=== PATIENT | male | born 1970 | race Caucasian/White ===

== ENCOUNTER 2017-03-03 12:25 | Inpatient (IN) | payer OTHER ==
[~2017-03-03] VITALS: Ht 180.3 cm; Wt 98.1 kg
[2017-03-03 12:59] LABS: MANUAL MICROSCOPIC REQUIRED? NO; REVIEW REQ? NO; URINE APPEARANCE CLEAR (CLEAR); URINE BILIRUBIN NEG (NEG); URINE COLOR YELLOW; URINE NITRITE NEG (NEG); URINE SPECIFIC GRAVITY 1.019 (1.000-1.030); UROBILINOGEN NEG (NEG); ZZUR CULT IF INDIC CLEAN CATCH NO
[2017-03-03 13:31] LABS: BENZODIAZEPINE, URINE NEG (NEG); COCAINE,URINE NEG (NEG); PHENCYCLIDINE, URINE NEG (NEG)
[2017-03-03 13:55] LABS: BASO % 0.2 %; BASO ABS # 0.02 K/uL (0-0.2); COMPLETE YES; EOS % 4.8 %; HEMATOCRIT 44.3 % (42-52); IG% 0.2 %; LYMPH % 23.2 %; LYMPH ABS # 2.13 K/uL (1.2-3.4); MEAN CELL VOLUME 88.1 fL (80-100); MEAN CORPUSCULAR HEMOGLOBIN 31.4 pg (25-34); MEAN CORPUSCULAR HGB CONC 35.7 g/dl (32-36); MEAN PLATELET VOLUME 10.3 fL (7.4-10.4); NEUT % 61.6 %; PLATELET COUNT 257 K/uL (130-400); RED BLOOD COUNT 5.03 M/uL (4.7-6.1); WHITE BLOOD COUNT 9.17 K/uL (4.8-10.8)
[2017-03-03] MEDS ORDERED: BUPRTAB PO (14:10)
[2017-03-03] MEDS ORDERED: MELO15TA4 PO (14:10)
[2017-03-03] MEDS ORDERED: PRLSR20 PO (14:10)
[2017-03-03 14:32] LABS: ALB/GLOB RATIO 1.1 (0.9-2); CALCIUM 8.9 mg/dl (8.5-10.1); CREATININE 1.27 mg/dl (0.60-1.40); THYROID STIMULATING HORMONE 2.66 uIu/ml (0.300-4.500)
[2017-03-03 14:34] LABS: POTASSIUM 4.6 mmol/L (3.5-5.1)
[2017-03-03 14:36] LABS: ACETAMINOPHEN < 2 ug/ml (10-30)
[2017-03-03] MEDS ORDERED: BISMUTH SUBSALICYLATE PER ML OMNICELL CHARGE PO PRN (16:15)
[2017-03-03] MEDS ORDERED: ACETAMINOPHEN 325 MG TAB PO PRN (16:15)
[2017-03-03] MEDS ORDERED: MAGNESIUM HYDROXIDE SUSP 30 ML UDC PO PRN (16:15)
[2017-03-03] MEDS ORDERED: ALUMINUM/MAGNESIUM SUSP 30 ML UDC PO PRN (16:15)
[2017-03-03] MEDS ORDERED: hydrOXYzine HCL 25 MG TAB PO PRN ×2 (16:15)
[2017-03-03] MEDS ORDERED: SODIUM CHLORIDE 0.65% NA SOLN 45 ML (OCEAN) PRN (16:15)
--- NOTE | 2017-03-03 17:03 | EMERGENCY ROOM VISIT NOTE ---
History Report prepared by Branden: Rey Bourgeois Under the Supervision of: Dr. Solo Valenzuela M.D. First contact with patient: 13:11 Chief Complaint: MENTAL HEALTH EVALUATION Stated Complaint: MR History of Present Illness The patient is a 46 year old male who presents to the Emergency Room with complaints of worsening anger beginning this week. He is worried that he has been losing his temper easily and has had difficulty controlling himself. He states that he has a lot of anger towards certain people and is afraid he could hurt them. The patient states that a lot of his anger is aimed at his step- mother. He states that he has always had problems with his step-mother, but it has worsened since his father . He has no specific plan to harm his step- mother. The patient was seen by a counselor earlier this week and referred to the ED. He denies suicidal ideation. He is a and has a history of PTSD. The patient has never acted on his anger towards his step-mother. He denies cough, fevers, or chills. He has a family history of depression. The patient states that he has not been sleeping well recently. He has been eating and drinking normally. He denies recent weight fluctuation. 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 Per , the patient had an episode of anxiety yesterday. She states that his heart was racing and he was very panicked. Source of History: patient Onset: This week Quality: other (anger) Timing: worsening Associated Symptoms: No fevers, No chills, No cough Review of Systems See HPI for pertinent positives & negatives. A total of 10 systems reviewed and were otherwise negative. Past Medical & Surgical Medical Problems: (1) PTSD (post-traumatic stress disorder) Family History No pertinent family history stated. Social History Smoking Status: Current Every Day Smoker Marital Status: Occupation Status: employed Current/Historical Medications Scheduled Bupropion (Wellbutrin Sr), 150 MG PO BID17 Meloxicam (Meloxicam), 15 MG PO DAILY Omeprazole (Prilosec), 40 MG PO BID Allergies Coded Allergies: No Known Allergies (Unverified , 03/03/17) Physical Exam Vital Signs Date Time Temp Pulse Resp B/P (MAP) Pulse Ox O2 Delivery O2 Flow Rate FiO2 03/03/17 17:15 73 18 151/74 98 Room Air 03/03/17 15:30 81 18 157/98 97 Room Air 03/03/17 12:29 36.8 90 20 157/91 94 Room Air Physical Exam GENERAL: Patient is in no acute distress. HEENT: No acute trauma, normocephalic atraumatic, mucous membranes moist, no nasal congestion, no scleral icterus. NECK: No stridor, no adenopathy, no meningismus, trachea is midline. LUNGS: Clear to auscultation bilaterally, no wheeze, no rhonchi, breath sounds equal. HEART: Without murmurs gallops or rubs, regular rate and rhythm. ABDOMEN: Soft, nontender, bowel sounds positive, no hernias, no peritonitis. EXTREMITIES: No cyanosis or edema, full range of motion of all the joints without pain or difficulty, no signs for acute trauma. NEUROLOGIC: Oriented x 3, no acute motor or sensory deficits, no focal weakness. SKIN: No rash, no jaundice, no diaphoresis. PSYCH: Flat affect. Admits to some homicidal ideation. No suicidality. Medical Decision & Procedures Laboratory Results 03/03/17 13:33 Red Blood Count 5.03, Mean Corpuscular Volume 88.1, Mean Corpuscular Hemoglobin 31.4, Mean Corpuscular Hemoglobin Concent 35.7, Mean Platelet Volume 10.3, Neutrophils (%) (Auto) 61.6, Lymphocytes (%) (Auto) 23.2, Monocytes (%) (Auto) 10.0, Eosinophils (%) (Auto) 4.8, Basophils (%) (Auto) 0.2, Neutrophils # (Auto ) 5.64, Lymphocytes # (Auto) 2.13, Monocytes # (Auto) 0.92, Eosinophils # (Auto ) 0.44, Basophils # (Auto) 0.02 03/03/17 13:33 Test 03/03/17 12:45 03/03/17 13:33 Urine Color YELLOW Urine Appearance CLEAR (CLEAR) Urine pH 7.0 (4.5-7.5) Urine Specific [place] 1.019 (1.000-1.030) Urine Protein NEG (NEG) Urine Glucose (UA) NEG (NEG) Urine Ketones NEG (NEG) Urine Occult Blood NEG (NEG) Urine Nitrite NEG (NEG) Urine Bilirubin NEG (NEG) Urine Urobilinogen NEG (NEG) Urine Leukocyte Esterase TRACE (NEG) Urine WBC (Auto) 1-5 /hpf (0-5) Urine RBC (Auto) 0-4 /hpf (0-4) Urine Hyaline Casts (Auto) 1-5 /lpf (0-5) Urine Epithelial Cells (Auto) 5-10 /lpf (0-5) Urine Bacteria (Auto) NEG (NEG) Urine Opiates Screen NEG (NEG) Urine Methadone, Qualitative NEG (NEG) Urine Barbiturates NEG (NEG) Urine Phencyclidine (PCP) Level NEG (NEG) Ur Amphetamine/Methamphetamine NEG (NEG) MDMA (Ecstasy) Screen POS (NEG) Urine Benzodiazepines Screen NEG (NEG) Urine Cocaine Metabolite NEG (NEG) Urine Marijuana (THC) NEG (NEG) White Blood Count 9.17 K/uL (4.8-10.8) Red Blood Count 5.03 M/uL (4.7-6.1) Hemoglobin 15.8 g/dL (14.0-18.0) Hematocrit 44.3 % (42-52) Mean Corpuscular Volume 88.1 fL (80-100) Mean Corpuscular Hemoglobin 31.4 pg (25-34) Mean Corpuscular Hemoglobin Concent 35.7 g/dl (32-36) Platelet Count 257 K/uL (130-400) Mean Platelet Volume 10.3 fL (7.4-10.4) Neutrophils (%) (Auto) 61.6 % Lymphocytes (%) (Auto) 23.2 % Monocytes (%) (Auto) 10.0 % Eosinophils (%) (Auto) 4.8 % Basophils (%) (Auto) 0.2 % Neutrophils # (Auto) 5.64 K/uL (1.4-6.5) Lymphocytes # (Auto) 2.13 K/uL (1.2-3.4) Monocytes # (Auto) 0.92 K/uL (0.11-0.59) Eosinophils # (Auto) 0.44 K/uL (0-0.5) Basophils # (Auto) 0.02 K/uL (0-0.2) RDW Standard Deviation 40.4 fL (36.4-46.3) RDW Coefficient of Variation 12.6 % (11.5-14.5) Immature Granulocyte % (Auto) 0.2 % Immature Granulocyte # (Auto) 0.02 K/uL (0.00-0.02) Anion Gap 10.0 mmol/L (3-11) Est Creatinine Clear Calc Drug Dose 88.5 ml/min Estimated GFR () 78.6 Estimated GFR (Non- 67.8 BUN/Creatinine Ratio 10.0 (10-20) Calcium Level 8.9 mg/dl (8.5-10.1) Total Bilirubin 0.6 mg/dl (0.2-1) Aspartate Amino Transf (AST/SGOT) 21 U/L (15-37) Alanine Aminotransferase (ALT/SGPT) 32 U/L (12-78) Alkaline Phosphatase 79 U/L (45-117) Total Protein 7.5 gm/dl (6.4-8.2) Albumin 3.9 gm/dl (3.4-5.0) Globulin 3.6 gm/dl (2.5-4.0) Albumin/Globulin Ratio 1.1 (0.9-2) Thyroid Stimulating Hormone (TSH) 2.660 uIu/ml (0.300-4.500) Salicylates Level 2.0 mg/dl (2.8-20) Acetaminophen Level < 2 ug/ml (10-30) Ethyl Alcohol mg/dL < 3.0 mg/dl (0-3) Laboratory results reviewed by me. Medications Administered Medications (Trade) Dose Ordered Sig/William Route Start Time Stop Time Status Last Admin Dose Admin Bupropion HCl (Wellbutrin-Sr Tab) 150 mg BID17 PO 03/03/17 17:00 04/02/17 16:59 03/03/17 18:28 150 MG ED Course 1314: The patient was evaluated in room A5. A complete history and physical exam was performed. 1710: Upon reexamination the patient is resting. I discussed results and treatment plan with the patient. He verbalizes agreement and understanding. The patient was accepted by [address] [place] [address]. Medical Decision The patient is a 46 year old male who presents to the ED with complaints of worsening anger. Differential diagnoses considered include homicidal ideation, suicidal ideation, thyroid disorder, PTSD, electrolyte imbalance, infection, and alcohol abuse. There is no leukocytosis or worrisome anemia. No significant electrolyte abnormality, kidney failure or hepatitis. The patient appears to be in a euthyroid state. Urinalysis does not show infection. Urine tox shows ecstasy, this could be from his Wellbutrin use though. Alcohol, Tylenol and aspirin levels were undetectable. The patient presents with worsening anger and frustration. He has had some homicidal ideation. He has been suffering from depression and anxiety. He does not feel he can function at home. The patient was felt medically clear. He was seen by psychiatry and has been accepted to this hospital's psychiatric floor. He will be brought into the psychiatric services voluntarily. Medication Reconcilliation Current Medication List: was personally reviewed by me Blood Pressure Screening Patient's blood pressure: Elevated blood pressure Blood pressure disposition: Elevated BP felt to be situational Impression Primary Impression: Homicidal ideation Scribe Attestation The scribe's documentation has been prepared under my direction and personally reviewed by me in its entirety. I confirm that the note above accurately reflects all work, treatment, procedures, and medical decision making performed by me. Departure Information Dispostion [facility] Acute Care (-[facility]) Referrals No Doctor, Assigned (PCP) Patient Instructions [facility]
[2017-03-03 17:15] VITALS: O2SAT 98
[2017-03-03] MEDS ORDERED: NURSING VERBAL MED ORDER ONE ×2 (17:45→18:00)
[2017-03-03] MEDS ORDERED: BUPR-79 PO (17:46)
[2017-03-03] MEDS: BuPROPion SR 150 MG TABCR PO SCH (18:28)
[2017-03-03 19:46] VITALS: BP 139/89; PULSE 81; TEMP 36.7; Ht 180.3 cm; Wt 98.1 kg
[2017-03-03] MEDS: PANTOprazole SOD 40 MG TAB PO SCH (21:33)
[2017-03-04 06:52] VITALS: BP_SYST 121; BP_SYST 131; BP_DIAS 71; BP_DIAS 76; PULSE 65; PULSE 88; TEMP 36.7
[2017-03-04] MEDS: PANTOprazole SOD 40 MG TAB PO SCH ×2 (07:45→22:59)
[2017-03-04] MEDS: BuPROPion SR 150 MG TABCR PO SCH ×2 (07:45→17:27)
[2017-03-04] MEDS: MELOXICAM 7.5 MG TAB PO SCH (07:45)
[2017-03-04] MEDS ORDERED: ESCITALOPRAM OXALATE 10 MG TAB PO ONE (10:30)
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
[2017-03-04] MEDS ORDERED: NICOTINE POLACRILEX 2 MG GUM MT PRN (10:45)
[2017-03-04] MEDS ORDERED: NICOTINE 21 MG/24 HR TDSY TD ONE (11:00)
[2017-03-04] MEDS: PRAZOSIN HCL 1 MG CAP PO SCH (22:59)
[2017-03-05 06:42] VITALS: BP_SYST 121; BP_DIAS 75; BP_DIAS 80; PULSE 65; PULSE 99; TEMP 36.6
[2017-03-05] MEDS: ESCITALOPRAM OXALATE 10 MG TAB PO SCH (08:33)
[2017-03-05] MEDS: BuPROPion SR 150 MG TABCR PO SCH ×2 (08:33→17:27)
[2017-03-05] MEDS: MELOXICAM 7.5 MG TAB PO SCH (08:33)
[2017-03-05] MEDS: PANTOprazole SOD 40 MG TAB PO SCH ×2 (08:33→22:20)
[2017-03-05] MEDS ORDERED: NICOTINE 21 MG/24 HR TDSY TD SCH (09:00)
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
[2017-03-05] MEDS: PRAZOSIN HCL 1 MG CAP PO SCH (22:20)
[2017-03-06 07:00] VITALS: BP_SYST 122; BP_SYST 124; BP_DIAS 71; BP_DIAS 78; PULSE 82; PULSE 98; TEMP 36.6
[2017-03-06] MEDS: MELOXICAM 7.5 MG TAB PO SCH (08:15)
[2017-03-06] MEDS: BuPROPion SR 150 MG TABCR PO SCH ×2 (08:15→17:26)
[2017-03-06] MEDS: ESCITALOPRAM OXALATE 10 MG TAB PO SCH (08:15)
[2017-03-06] MEDS: PANTOprazole SOD 40 MG TAB PO SCH ×2 (08:15→21:58)
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
[2017-03-06] MEDS: TOCOPHERYL, DL-ALPHA 400 INTER.UNIT CAP PO SCH (14:42)
[2017-03-06] MEDS: CHOLECALCIFEROL 1000 INTER.UNIT TAB PO SCH (14:43)
[2017-03-06] MEDS: PRAZOSIN HCL 1 MG CAP PO SCH (21:59)
[2017-03-07 06:36] VITALS: BP_SYST 115; BP_SYST 120; BP_DIAS 73; BP_DIAS 78; PULSE 73; PULSE 98; TEMP 36.5
[2017-03-07] MEDS: ESCITALOPRAM OXALATE 10 MG TAB PO SCH (08:50)
[2017-03-07] MEDS: PANTOprazole SOD 40 MG TAB PO SCH ×2 (08:50→21:59)
[2017-03-07] MEDS: TOCOPHERYL, DL-ALPHA 400 INTER.UNIT CAP PO SCH ×2 (08:50→21:59)
[2017-03-07] MEDS: CHOLECALCIFEROL 1000 INTER.UNIT TAB PO SCH (08:50)
[2017-03-07] MEDS: MELOXICAM 7.5 MG TAB PO SCH (08:50)
[2017-03-07] MEDS: BuPROPion SR 150 MG TABCR PO SCH ×2 (08:50→17:29)
[2017-03-07] MEDS ORDERED: VITA400C3 PO (08:55)
[2017-03-07] MEDS ORDERED: CHOL100040 PO (08:55)
--- NOTE | 2017-03-07 10:20 | Psych Management Progress Note ---
Psychiatry Miscellaneous Date of Service: Mar 07, 2017. Patient seen, MS assessed. Rates mood as 5/10. Encouraged cooperation with care and treatment plan as outlined by DIETITIAN TEACHER. Patient notes some fatigue today.
--- NOTE | 2017-03-07 11:52 | Psychiatric Progress Notes ---
Progress Note Date of Service Mar 07, 2017. Interval History 46-year-old gentleman admitted voluntarily with depression, rage, and inability to function. He has had a number of chronic and acute stressors culminating in his inability to function and episodes of rage. is concerned about his impulse control, fearing he would act on his violent thoughts. He has been on Wellbutrin from his PCP which has been effective. He was started on Lexapro to continue to address mood and irritability and prazosin for nightmares disrupting sleep. Chief Complaint "It didn't go the way I thought (family meeting).". Subjective Patient was seen & assessed interval progress reviewed with Treatment Team. The patient had a meeting with his yesterday. He thought they were going to talk about his meds and treatment, but talked about her frustrations, their relationship and the fact that she is not sure she will remain in the marriage. This was difficult for him to hear, "but I needed it.". He says that she wants him to put her first, as she feels he puts her last and doesn't include her in decision making. Although he didn't talk about it today, notes from the meeting indicate that he has had sexual contact with his ex during their marriage, and tried a second time. He admits that he felt angry during the meeting, like he wanted to punch something, but the more he talked the lower the anger got. he has had 2 conversations by phone with her since then and she wants to continue to talk about it, but he was able to tell her that he feels like she is nagging him about it and she was able to tolerate that feedback. He says that he is really trying to work in groups, talk when he normally wouldn't, and practice different ways to communicate. Nursing reports that he has been a good group participant. He is willing for ongoing couples therapy which he will initiate. He denies SI/HI. Review of Systems Constitutional: No fever, No chills, No sweats, No weight loss, No weakness, No fatigue, No problem reported ENT: No hearing loss, No unusual epistaxis, No nasal symptoms, No sore throat, No tinnitus, No dental problems, No trouble swallowing, No problem reported Respiratory: No cough, No sputum, No wheezing, No shortness of breath, No dyspnea on exertion, No dyspnea at rest, No hemoptysis, No problem reported Cardiovascular: No chest pain, No orthopnea, No PND, No edema, No claudication , No palpitations, No problem reported Abdomen: No pain, No nausea, No vomiting, No diarrhea, No constipation, No GI bleeding, No problem reported Musculoskeletal: No joint pain, No muscle pain, No swelling, No calf pain, No problem reported Neurologic: No memory loss, No paralysis, No weakness, No numbness/tingling, No vertigo, No balance problems, No problem reported Psychiatric: + depression symptoms, + problem reported (intermittant anger) Sleep Information Total Hours of Sleep: 6.75 Meal Information Percent of Breakfast Consumed: 100 Percent of Lunch Consumed: 100 Percent of Dinner Consumed: 100 Mental Status Exam During interview pt is: alert and oriented, cooperative Appearance: appropriately dressed, appropriately groomed Eye contact is: good Motor behavior is: steady gait & station, no abnormal motor movements Speech: normal in rate, rhythm & volume Affect: blunted, anxious Mood is: anxious Thought process: goal directed Thought content: reality based without delusions Suicidal thought are: denied Homicidal thoughts are: denied (but admits to chronic thoughts of violence toward his stepmother which he has never acted on) Hallucinations: denies auditory, denies visual Cognition: memory grossly intact, attention grossly intact, language grossly intact Intelligence estimated to be: average Insight: limited Judgement: limited Impression Had a productive family meeting yesterday and he is recognizing the patterns in his behavior that have negatively affected him ie in previous 2 marriages didn' t put his wives first, just like this marriage. He seems genuinely interested in making changes to save his marriage and improve his own mood and outlook, and is using group and milieu therapy as a training ground. He has been in good behavioral control. He is requesting Vit D and E that he takes at home and so will order. Will continue Lexapro 15 mg. daily. [facility] word [facility] whether [facility] Plan (1) Major depressive disorder, recurrent severe without psychotic features 03/04 - Will continue Wellbutrin SR twice a day for now but am concerned about the activation relative to his impulsivity. Would like to decrease this if Lexapro tolerated - Start Lexapro 5 mg today increasing to 10 mg tomorrow - Family meeting with - Encourage participation in group and individual counseling - Assist the patient to learn healthy coping strategies - Encourage individual therapy during periods of rage while here on the unit - Every 15 minute checks for safety - The patient will need a psychiatric prescriber after discharge 03/05 - Continue current meds - Could consider a trial of depakote to target anger if it does not subside by treating the depression with SSRI - Family meeting tomorrow with . - I have encouraged the patient to trial journaling his emotions - Encourage patient to identify earliest symptoms of anger 03/06 --titrate Lexapro 03/07 - Continue Lexapro 15 mg. and Wellbutrin. - [facility] (2) PTSD (post-traumatic stress disorder) 03/04 - Having frequent nightmares and flashbacks. Will trial prazosin 1 mg at bedtime - Patient served for 4 years in the [employer]. Explore whether he is eligible to participate in any PTSD treatment at the [facility] - Assist the patient to learn and utilize healthy coping strategies 03/06 --prazosin effective (3) Tobacco use disorder 03/04 - Will continue Wellbutrin for now which she has been using for smoking cessation - Will provide nicotine patch 21 mg daily and Nicorette gum 2 mg 1 every hour when necessary nicotine withdrawal 03/06 --using regular gum, cravings minimal yesterday Discharge / Aftercare Planning Primary Care Physician: Name: Doreen Liu PA-C in [place] Therapist: Name: Mandie Dooley Phone Number: [phone] Visit Code E&M Code: 93113 Inventory Assets Strengths: Willingness to engage in treatment, support from Needs: To learn healthy coping strategies Risk Factors Assessment Male: Yes : Yes /single/: No Higher / Fall in social status: No Health problems: No Mental Health Diagnoses: Yes Substance use disorders: No Previous attempt: No Previous psychiatric stay: No Hopelessness: No Smoker: Yes Protective Factors Assessment : Yes Responsible for young children: Yes Employed: Yes Stable relationships: Yes Supportive family: Yes Data Vital Signs Last 24 Hrs: Date Time Temp Pulse Resp B/P (MAP) Pulse Ox O2 Delivery O2 Flow Rate FiO2 03/07/17 06:36 36.5 73 18 115/73 98 120/78 Meds Administered Last 24 Hrs: Meds Administered (Past 24Hrs) Medications (Trade) Dose Ordered Sig/William Route Start Time Stop Time Status Last Admin Dose Admin Escitalopram Oxalate (Lexapro Tab) 15 mg QAM PO 03/07/17 09:00 04/04/17 08:59 03/07/17 08:50 15 MG ir-Lmzgn-Cfresprchg Acetate (Vitamin E Cap) 400 interunit QAM PO 03/06/17 12:00 04/05/17 11:59 03/07/17 08:50 400 INTERUNIT Cholecalciferol (Vitamin D Tab) 1,000 inter.unit QAM PO 03/06/17 12:00 04/05/17 11:59 03/07/17 08:50 1,000 INTER.UNIT Lab Results Last 24 Hrs: 03/03/17 13:33 Red Blood Count 5.03, Mean Corpuscular Volume 88.1, Mean Corpuscular Hemoglobin 31.4, Mean Corpuscular Hemoglobin Concent 35.7, Mean Platelet Volume 10.3, Neutrophils (%) (Auto) 61.6, Lymphocytes (%) (Auto) 23.2, Monocytes (%) (Auto) 10.0, Eosinophils (%) (Auto) 4.8, Basophils (%) (Auto) 0.2, Neutrophils # (Auto ) 5.64, Lymphocytes # (Auto) 2.13, Monocytes # (Auto) 0.92, Eosinophils # (Auto ) 0.44, Basophils # (Auto) 0.02 03/03/17 13:33 Test 03/03/17 12:45 03/03/17 13:33 Urine Color YELLOW Urine Appearance CLEAR (CLEAR) Urine pH 7.0 (4.5-7.5) Urine Specific [place] 1.019 (1.000-1.030) Urine Protein NEG (NEG) Urine Glucose (UA) NEG (NEG) Urine Ketones NEG (NEG) Urine Occult Blood NEG (NEG) Urine Nitrite NEG (NEG) Urine Bilirubin NEG (NEG) Urine Urobilinogen NEG (NEG) Urine Leukocyte Esterase TRACE (NEG) Urine WBC (Auto) 1-5 /hpf (0-5) Urine RBC (Auto) 0-4 /hpf (0-4) Urine Hyaline Casts (Auto) 1-5 /lpf (0-5) Urine Epithelial Cells (Auto) 5-10 /lpf (0-5) Urine Bacteria (Auto) NEG (NEG) Urine Opiates Screen NEG (NEG) Urine Methadone, Qualitative NEG (NEG) Urine Barbiturates NEG (NEG) Urine Phencyclidine (PCP) Level NEG (NEG) Ur Amphetamine/Methamphetamine NEG (NEG) MDMA (Ecstasy) Screen POS (NEG) Urine Benzodiazepines Screen NEG (NEG) Urine Cocaine Metabolite NEG (NEG) Urine Marijuana (THC) NEG (NEG) White Blood Count 9.17 K/uL (4.8-10.8) Red Blood Count 5.03 M/uL (4.7-6.1) Hemoglobin 15.8 g/dL (14.0-18.0) Hematocrit 44.3 % (42-52) Mean Corpuscular Volume 88.1 fL (80-100) Mean Corpuscular Hemoglobin 31.4 pg (25-34) Mean Corpuscular Hemoglobin Concent 35.7 g/dl (32-36) Platelet Count 257 K/uL (130-400) Mean Platelet Volume 10.3 fL (7.4-10.4) Neutrophils (%) (Auto) 61.6 % Lymphocytes (%) (Auto) 23.2 % Monocytes (%) (Auto) 10.0 % Eosinophils (%) (Auto) 4.8 % Basophils (%) (Auto) 0.2 % Neutrophils # (Auto) 5.64 K/uL (1.4-6.5) Lymphocytes # (Auto) 2.13 K/uL (1.2-3.4) Monocytes # (Auto) 0.92 K/uL (0.11-0.59) Eosinophils # (Auto) 0.44 K/uL (0-0.5) Basophils # (Auto) 0.02 K/uL (0-0.2) RDW Standard Deviation 40.4 fL (36.4-46.3) RDW Coefficient of Variation 12.6 % (11.5-14.5) Immature Granulocyte % (Auto) 0.2 % Immature Granulocyte # (Auto) 0.02 K/uL (0.00-0.02) Anion Gap 10.0 mmol/L (3-11) Est Creatinine Clear Calc Drug Dose 88.5 ml/min Estimated GFR () 78.6 Estimated GFR (Non- 67.8 BUN/Creatinine Ratio 10.0 (10-20) Calcium Level 8.9 mg/dl (8.5-10.1) Total Bilirubin 0.6 mg/dl (0.2-1) Aspartate Amino Transf (AST/SGOT) 21 U/L (15-37) Alanine Aminotransferase (ALT/SGPT) 32 U/L (12-78) Alkaline Phosphatase 79 U/L (45-117) Total Protein 7.5 gm/dl (6.4-8.2) Albumin 3.9 gm/dl (3.4-5.0) Globulin 3.6 gm/dl (2.5-4.0) Albumin/Globulin Ratio 1.1 (0.9-2) Thyroid Stimulating Hormone (TSH) 2.660 uIu/ml (0.300-4.500) Salicylates Level 2.0 mg/dl (2.8-20) Acetaminophen Level < 2 ug/ml (10-30) Ethyl Alcohol mg/dL < 3.0 mg/dl (0-3)
[2017-03-07] MEDS: PRAZOSIN HCL 1 MG CAP PO SCH (21:59)
[2017-03-08 06:59] VITALS: BP_SYST 117; BP_SYST 118; BP_DIAS 73; BP_DIAS 76; PULSE 83; PULSE 96; TEMP 36.6
[2017-03-08] MEDS: ESCITALOPRAM OXALATE 10 MG TAB PO SCH (08:17)
[2017-03-08] MEDS: MELOXICAM 7.5 MG TAB PO SCH (08:18)
[2017-03-08] MEDS: CHOLECALCIFEROL 1000 INTER.UNIT TAB PO SCH (08:19)
[2017-03-08] MEDS: BuPROPion SR 150 MG TABCR PO SCH ×2 (08:19→17:24)
[2017-03-08] MEDS: PANTOprazole SOD 40 MG TAB PO SCH ×2 (08:19→22:03)
[2017-03-08] MEDS: TOCOPHERYL, DL-ALPHA 400 INTER.UNIT CAP PO SCH ×2 (08:19→22:03)
--- NOTE | 2017-03-08 10:45 | Psychiatric Progress Notes ---
Progress Note Date of Service Mar 08, 2017. Interval History 46-year-old gentleman admitted voluntarily with depression, rage, and inability to function. He has had a number of chronic and acute stressors culminating in his inability to function and episodes of rage. is concerned about his impulse control, fearing he would act on his violent thoughts. He has been on Wellbutrin from his PCP which has been effective. He was started on Lexapro to continue to address mood and irritability and prazosin for nightmares disrupting sleep. Chief Complaint "I'm really learning a lot about myself here. ". Subjective Patient was seen & assessed interval progress reviewed with Treatment Team. The patient has continued his talks with his . Yesterday they talked about his son and visitation. They are thinking about getting him on their regular day Thursday "and see how it goes". They may not keep him for the whole weekend in order to have some down time together before he goes back to work. He feels that he is learning how to "talk, listen and see" in ways that he didn' t before. he is practicing these things here. He is looking forward to couples counseling and wants to get the name of a therapist tomorrow from social work. He talked about the stress he feels with his son and the custody issues, feeling that his mother puts thoughts and words in his head. Randall does not think that his son necessarily needs meds for ADHD, saying that his behavior is normal boy behavior, rambunctious at times. Randall continues to deny SI/HI. Review of Systems Constitutional: No fever, No chills, No sweats, No weight loss, No weakness, No fatigue, No problem reported ENT: No hearing loss, No unusual epistaxis, No nasal symptoms, No sore throat, No tinnitus, No dental problems, No trouble swallowing, No problem reported Respiratory: No cough, No sputum, No wheezing, No shortness of breath, No dyspnea on exertion, No dyspnea at rest, No hemoptysis, No problem reported Cardiovascular: No chest pain, No orthopnea, No PND, No edema, No claudication , No palpitations, No problem reported Abdomen: No pain, No nausea, No vomiting, No diarrhea, No constipation, No GI bleeding, No problem reported Musculoskeletal: No joint pain, No muscle pain, No swelling, No calf pain, No problem reported Neurologic: No memory loss, No paralysis, No weakness, No numbness/tingling, No vertigo, No balance problems, No problem reported Psychiatric: + anxiety Integumentary: No rash, No itch, No new/changing skin lesions, No color change , No bleeding, No problem reported Sleep Information Total Hours of Sleep: 6.00 Meal Information Percent of Breakfast Consumed: 90 Percent of Lunch Consumed: 100 Percent of Dinner Consumed: 100 Mental Status Exam During interview pt is: alert and oriented, cooperative Appearance: appropriately dressed, appropriately groomed Eye contact is: good Motor behavior is: steady gait & station, no abnormal motor movements Speech: normal in rate, rhythm & volume Affect: blunted, anxious Mood is: anxious Thought process: goal directed Thought content: reality based without delusions Suicidal thought are: denied Homicidal thoughts are: denied (but admits to chronic thoughts of violence toward his stepmother which he has never acted on) Hallucinations: denies auditory, denies visual Cognition: memory grossly intact, attention grossly intact, language grossly intact Intelligence estimated to be: average Insight: limited Judgement: limited Impression Continues to benefit from group and individual counseling, trying to learn new ways to communicate and to understand others. Is tolerating the lexapro, so will continue. We still need to establish psychiatric aftercare which we can continue tomorrow and explore possibilities with the [facility]. Plan (1) Major depressive disorder, recurrent severe without psychotic features 03/04 - Will continue Wellbutrin SR twice a day for now but am concerned about the activation relative to his impulsivity. Would like to decrease this if Lexapro tolerated - Start Lexapro 5 mg today increasing to 10 mg tomorrow - Family meeting with - Encourage participation in group and individual counseling - Assist the patient to learn healthy coping strategies - Encourage individual therapy during periods of rage while here on the unit - Every 15 minute checks for safety - The patient will need a psychiatric prescriber after discharge 03/05 - Continue current meds - Could consider a trial of depakote to target anger if it does not subside by treating the depression with SSRI - Family meeting tomorrow with . - I have encouraged the patient to trial journaling his emotions - Encourage patient to identify earliest symptoms of anger 03/06 --titrate Lexapro 03/07 - Continue Lexapro 15 mg. and Wellbutrin. - [facility]/08 - Continue current meds and plan (2) PTSD (post-traumatic stress disorder) 03/04 - Having frequent nightmares and flashbacks. Will trial prazosin 1 mg at bedtime - Patient served for 4 years in the [employer]. Explore whether he is eligible to participate in any PTSD treatment at the [facility] - Assist the patient to learn and utilize healthy coping strategies 03/06 --prazosin effective (3) Tobacco use disorder 03/04 - Will continue Wellbutrin for now which she has been using for smoking cessation - Will provide nicotine patch 21 mg daily and Nicorette gum 2 mg 1 every hour when necessary nicotine withdrawal 03/06 --using regular gum, cravings minimal yesterday Discharge / Aftercare Planning Primary Care Physician: Name: Doreen Liu PA-C in [place] Therapist: Name: Siddhartha [place] Phone Number: [phone] Inventory Assets Strengths: Willingness to engage in treatment, support from Needs: To learn healthy coping strategies Risk Factors Assessment Male: Yes : Yes /single/: No Higher / Fall in social status: No Health problems: No Mental Health Diagnoses: Yes Substance use disorders: No Previous attempt: No Previous psychiatric stay: No Hopelessness: No Smoker: Yes Protective Factors Assessment : Yes Responsible for young children: Yes Employed: Yes Stable relationships: Yes Supportive family: Yes Data Vital Signs Last 24 Hrs: Date Time Temp Pulse Resp B/P (MAP) Pulse Ox O2 Delivery O2 Flow Rate FiO2 03/08/17 06:59 36.6 83 16 118/73 96 117/76 Meds Administered Last 24 Hrs: Meds Administered (Past 24Hrs) Medications (Trade) Dose Ordered Sig/William Route Start Time Stop Time Status Last Admin Dose Admin Escitalopram Oxalate (Lexapro Tab) 15 mg QAM PO 03/07/17 09:00 04/04/17 08:59 03/08/17 08:17 15 MG gp-Pqhaw-Wiwfwbqhcs Acetate (Vitamin E Cap) 400 interunit QAM PO 03/06/17 12:00 03/07/17 12:01 DC 03/07/17 08:50 400 INTERUNIT Cholecalciferol (Vitamin D Tab) 1,000 inter.unit QAM PO 03/06/17 12:00 03/07/17 12:00 DC 03/07/17 08:50 1,000 INTER.UNIT Cholecalciferol (Vitamin D Tab) 5,000 inter.unit QAM PO 03/08/17 09:00 04/07/17 08:59 03/08/17 08:19 5,000 INTER.UNIT kd-Zswbm-Tuhsirlfiu Acetate (Vitamin E Cap) 400 interunit BID PO 03/07/17 22:00 04/06/17 21:59 03/08/17 08:19 400 INTERUNIT Lab Results Last 24 Hrs: 03/03/17 13:33 Red Blood Count 5.03, Mean Corpuscular Volume 88.1, Mean Corpuscular Hemoglobin 31.4, Mean Corpuscular Hemoglobin Concent 35.7, Mean Platelet Volume 10.3, Neutrophils (%) (Auto) 61.6, Lymphocytes (%) (Auto) 23.2, Monocytes (%) (Auto) 10.0, Eosinophils (%) (Auto) 4.8, Basophils (%) (Auto) 0.2, Neutrophils # (Auto ) 5.64, Lymphocytes # (Auto) 2.13, Monocytes # (Auto) 0.92, Eosinophils # (Auto ) 0.44, Basophils # (Auto) 0.02 03/03/17 13:33 Test 03/03/17 12:45 03/03/17 13:33 Urine Color YELLOW Urine Appearance CLEAR (CLEAR) Urine pH 7.0 (4.5-7.5) Urine Specific [place] 1.019 (1.000-1.030) Urine Protein NEG (NEG) Urine Glucose (UA) NEG (NEG) Urine Ketones NEG (NEG) Urine Occult Blood NEG (NEG) Urine Nitrite NEG (NEG) Urine Bilirubin NEG (NEG) Urine Urobilinogen NEG (NEG) Urine Leukocyte Esterase TRACE (NEG) Urine WBC (Auto) 1-5 /hpf (0-5) Urine RBC (Auto) 0-4 /hpf (0-4) Urine Hyaline Casts (Auto) 1-5 /lpf (0-5) Urine Epithelial Cells (Auto) 5-10 /lpf (0-5) Urine Bacteria (Auto) NEG (NEG) Urine Opiates Screen NEG (NEG) Urine Methadone, Qualitative NEG (NEG) Urine Barbiturates NEG (NEG) Urine Phencyclidine (PCP) Level NEG (NEG) Ur Amphetamine/Methamphetamine NEG (NEG) MDMA (Ecstasy) Screen POS (NEG) Urine Benzodiazepines Screen NEG (NEG) Urine Cocaine Metabolite NEG (NEG) Urine Marijuana (THC) NEG (NEG) White Blood Count 9.17 K/uL (4.8-10.8) Red Blood Count 5.03 M/uL (4.7-6.1) Hemoglobin 15.8 g/dL (14.0-18.0) Hematocrit 44.3 % (42-52) Mean Corpuscular Volume 88.1 fL (80-100) Mean Corpuscular Hemoglobin 31.4 pg (25-34) Mean Corpuscular Hemoglobin Concent 35.7 g/dl (32-36) Platelet Count 257 K/uL (130-400) Mean Platelet Volume 10.3 fL (7.4-10.4) Neutrophils (%) (Auto) 61.6 % Lymphocytes (%) (Auto) 23.2 % Monocytes (%) (Auto) 10.0 % Eosinophils (%) (Auto) 4.8 % Basophils (%) (Auto) 0.2 % Neutrophils # (Auto) 5.64 K/uL (1.4-6.5) Lymphocytes # (Auto) 2.13 K/uL (1.2-3.4) Monocytes # (Auto) 0.92 K/uL (0.11-0.59) Eosinophils # (Auto) 0.44 K/uL (0-0.5) Basophils # (Auto) 0.02 K/uL (0-0.2) RDW Standard Deviation 40.4 fL (36.4-46.3) RDW Coefficient of Variation 12.6 % (11.5-14.5) Immature Granulocyte % (Auto) 0.2 % Immature Granulocyte # (Auto) 0.02 K/uL (0.00-0.02) Anion Gap 10.0 mmol/L (3-11) Est Creatinine Clear Calc Drug Dose 88.5 ml/min Estimated GFR () 78.6 Estimated GFR (Non- 67.8 BUN/Creatinine Ratio 10.0 (10-20) Calcium Level 8.9 mg/dl (8.5-10.1) Total Bilirubin 0.6 mg/dl (0.2-1) Aspartate Amino Transf (AST/SGOT) 21 U/L (15-37) Alanine Aminotransferase (ALT/SGPT) 32 U/L (12-78) Alkaline Phosphatase 79 U/L (45-117) Total Protein 7.5 gm/dl (6.4-8.2) Albumin 3.9 gm/dl (3.4-5.0) Globulin 3.6 gm/dl (2.5-4.0) Albumin/Globulin Ratio 1.1 (0.9-2) Thyroid Stimulating Hormone (TSH) 2.660 uIu/ml (0.300-4.500) Salicylates Level 2.0 mg/dl (2.8-20) Acetaminophen Level < 2 ug/ml (10-30) Ethyl Alcohol mg/dL < 3.0 mg/dl (0-3)
[2017-03-08] MEDS: PRAZOSIN HCL 1 MG CAP PO SCH (22:03)
[2017-03-09 06:53] VITALS: BP_SYST 107; BP_SYST 108; BP_DIAS 66; BP_DIAS 72; PULSE 90; PULSE 92; TEMP 36.5
[2017-03-09] MEDS: ESCITALOPRAM OXALATE 10 MG TAB PO SCH (08:01)
[2017-03-09] MEDS: PANTOprazole SOD 40 MG TAB PO SCH ×2 (08:02→22:17)
[2017-03-09] MEDS: MELOXICAM 7.5 MG TAB PO SCH (08:02)
[2017-03-09] MEDS: BuPROPion SR 150 MG TABCR PO SCH ×2 (08:03→17:22)
[2017-03-09] MEDS: CHOLECALCIFEROL 1000 INTER.UNIT TAB PO SCH (08:03)
[2017-03-09] MEDS: TOCOPHERYL, DL-ALPHA 400 INTER.UNIT CAP PO SCH ×2 (08:03→22:17)
--- NOTE | 2017-03-09 12:35 | Psychiatric Progress Notes ---
Progress Note Date of Service Mar 09, 2017. Interval History 46-year-old gentleman admitted voluntarily with depression, rage, and inability to function. He has had a number of chronic and acute stressors culminating in his inability to function and episodes of rage. is concerned about his impulse control, fearing he would act on his violent thoughts. He has been on Wellbutrin from his PCP which has been effective. He was started on Lexapro to continue to address mood and irritability and prazosin for nightmares disrupting sleep. Chief Complaint "Things have been going real good". Subjective Patient was seen & assessed interval progress reviewed with Treatment Team. Staff report he is endorsing improved mood, feels that treatment has been very helpful, and is attending all unit programming and participating actively. He is worried about being discharged too quickly and that he will worsen when he returns home. He continues to process his family meeting with his and the concerns they discussed. He does not yet have a psychiatric prescriber, and has stated that he does not want to go to the [facility]. He is denying thoughts of harming his stepmother. He and his have been talking about getting couples ' therapy. Today, the patient states his mood is improved, thoughts are clearer , and he feels he can "see what's been going on, and seeing what to do to get through it." He says it was hard for him to admit that he had a problem and needed help. He got a phone number for couples' counseling, and is looking at options for med management. He doesn't want to go to the [facility] but has been told he cannot go to [facility]. He denies side effects to medications, and thinks they are helping with mood, anxiety, thoughts, and sleep. He denies SI, HI, and feels he is not dwelling on negative thoughts anymore. He states he would seek help if thoughts of harming others returned, as he doesn't want to act on them, and lists several people he could go to for help that he trusts. Sleep Information Total Hours of Sleep: 6.50 Meal Information Percent of Breakfast Consumed: 100 Percent of Lunch Consumed: 95 Percent of Dinner Consumed: 100 Mental Status Exam During interview pt is: alert and oriented, cooperative Appearance: appropriately dressed, appropriately groomed Eye contact is: good Motor behavior is: steady gait & station, no abnormal motor movements Speech: normal in rate, rhythm & volume Affect: euthymic Mood is: other ("better") Thought process: goal directed Thought content: reality based without delusions Suicidal thought are: denied Homicidal thoughts are: denied (but admits to chronic thoughts of violence toward his stepmother which he has never acted on) Hallucinations: denies auditory, denies visual Cognition: memory grossly intact, attention grossly intact, language grossly intact Intelligence estimated to be: average Insight: limited Judgement: limited Impression Continues to improve, is tolerating the Lexapro, and we are arranging aftercare. Anticipate discharge tomorrow. Patient continues to state he is worried that his thoughts will return, and that he will relapse when he has to face "the outside world." Plan (1) Major depressive disorder, recurrent severe without psychotic features 03/04 - Will continue Wellbutrin SR twice a day for now but am concerned about the activation relative to his impulsivity. Would like to decrease this if Lexapro tolerated - Start Lexapro 5 mg today increasing to 10 mg tomorrow - Family meeting with - Encourage participation in group and individual counseling - Assist the patient to learn healthy coping strategies - Encourage individual therapy during periods of rage while here on the unit - Every 15 minute checks for safety - The patient will need a psychiatric prescriber after discharge 03/05 - Continue current meds - Could consider a trial of depakote to target anger if it does not subside by treating the depression with SSRI - Family meeting tomorrow with . - I have encouraged the patient to trial journaling his emotions - Encourage patient to identify earliest symptoms of anger 03/06 --titrate Lexapro 03/07 - Continue Lexapro 15 mg. and Wellbutrin. - [facility] - Continue current meds and plan 03/09 - Working on discharge safety plan. - Continue escitalopram. Arrange psychiatric aftercare. (2) PTSD (post-traumatic stress disorder) 03/04 - Having frequent nightmares and flashbacks. Will trial prazosin 1 mg at bedtime - Patient served for 4 years in the [employer]. Explore whether he is [facility] to [facility] - Assist the patient to learn and utilize healthy coping strategies 03/06 --prazosin effective (3) Tobacco use disorder 03/04 - Will continue Wellbutrin for now which she has been using for smoking cessation - Will provide nicotine patch 21 mg daily and Nicorette gum 2 mg 1 every hour when necessary nicotine withdrawal 03/06 --using regular gum, cravings minimal yesterday Discharge / Aftercare Planning Primary Care Physician: Name: Doreen Liu PA-C in [place] Therapist: Name: Siddhartha [place] Phone Number: [phone] Visit Code E&M Code: 92219 Inventory Assets Strengths: Willingness to engage in treatment, support from Needs: To learn healthy coping strategies Risk Factors Assessment Male: Yes : Yes /single/: No Higher / Fall in social status: No Health problems: No Mental Health Diagnoses: Yes Substance use disorders: No Previous attempt: No Previous psychiatric stay: No Hopelessness: No Smoker: Yes Protective Factors Assessment : Yes Responsible for young children: Yes Employed: Yes Stable relationships: Yes Supportive family: Yes Data Vital Signs Last 24 Hrs: Date Time Temp Pulse Resp B/P (MAP) Pulse Ox O2 Delivery O2 Flow Rate FiO2 03/09/17 06:53 36.5 90 16 108/66 92 107/72 Meds Administered Last 24 Hrs: Meds Administered (Past 24Hrs) Medications (Trade) Dose Ordered Sig/William Route Start Time Stop Time Status Last Admin Dose Admin Cholecalciferol (Vitamin D Tab) 5,000 inter.unit QAM PO 03/08/17 09:00 04/07/17 08:59 03/09/17 08:03 5,000 INTER.UNIT [id number] Acetate (Vitamin E Cap) 400 interunit BID PO 03/07/17 22:00 04/06/17 21:59 03/09/17 08:03 400 INTERUNIT
[2017-03-09] MEDS: PRAZOSIN HCL 1 MG CAP PO SCH (22:17)
[2017-03-10 06:52] VITALS: BP_SYST 111; BP_SYST 116; BP_DIAS 69; BP_DIAS 73; PULSE 65; PULSE 83; TEMP 36.6
[2017-03-10] MEDS: ESCITALOPRAM OXALATE 10 MG TAB PO SCH (08:20)
[2017-03-10] MEDS: CHOLECALCIFEROL 1000 INTER.UNIT TAB PO SCH (08:21)
[2017-03-10] MEDS: BuPROPion SR 150 MG TABCR PO SCH (08:21)
[2017-03-10] MEDS: PANTOprazole SOD 40 MG TAB PO SCH (08:21)
[2017-03-10] MEDS: TOCOPHERYL, DL-ALPHA 400 INTER.UNIT CAP PO SCH (08:21)
[2017-03-10] MEDS: MELOXICAM 7.5 MG TAB PO SCH (08:21)
[2017-03-10] MEDS ORDERED: PRZ1 PO (09:19)
[2017-03-10] MEDS ORDERED: LXP10 PO (09:19)
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
[2017-03-11 15:34] LABS: SYNTHETIC CANNABINOIDS QL URIN NEGATIVE (Negative)
== END 2017-03-10 11:04 | disposition home or self-care (01) | DRG 885 ==
LOC: C.EDB 12:29 → C.MHU 17:30
PROVIDERS: ADMIT Psychiatry & Neurology Psychiatry; ATTEND Psychiatry & Neurology Psychiatry
DX: F33.9 Major depressive disorder, recurrent, unspecified (principal); R45.850 Homicidal ideations; F17.200 Nicotine dependence, unspecified, uncomplicated; F32.9 Major depressive disorder, single episode, unspecified; Z81.1 Family history of alcohol abuse and dependence; H91.90 Unspecified hearing loss, unspecified ear; H54.7 Unspecified visual loss; F43.10 Post-traumatic stress disorder, unspecified